=== PATIENT | female | born 1995 | race Caucasian/White ===

== ENCOUNTER 2023-10-26 20:12 | Emergency (ER) | payer BC, OTHER ==
[2023-10-26] MEDS ORDERED: FAMOTIDINE 20 MG TABLET ONE (20:21)
[2023-10-26] MEDS ORDERED: ACETAMINOPHEN 500 MG TABLET (FP) ONE (20:21)
[2023-10-26] MEDS ORDERED: MAG HYDROX/AL HYDROX/SIMETH 30 ML UNIT-DOSE CUP ONE (20:22)
[2023-10-26] MEDS ORDERED: ONDANSETRON *ODT* 4 MG TABLET ONE (20:22)
[2023-10-26] MEDS: ONDANSETRON *ODT* 4 MG TABLET SL ONE (20:25)
[2023-10-26] MEDS: ACETAMINOPHEN 500 MG TABLET (FP) PO ONE (20:28)
[2023-10-26] MEDS: MAG HYDROX/AL HYDROX/SIMETH 30 ML UNIT-DOSE CUP PO ONE (20:28)
[2023-10-26] MEDS: FAMOTIDINE 20 MG TABLET PO ONE (20:29)
[2023-10-26 20:40] VITALS: BP 122/77; PULSE 86; RESP 16; TEMP 98.9; BMI 22.1
== END 2023-10-26 20:47 | disposition home or self-care (01) ==
LOC: FER 20:12
DX: R10.13 Epigastric pain (principal); R11.0 Nausea
CPT/HCPCS: 99283-25; Q0162